=== PATIENT | female | born 1995 | race African-American/Black ===

== ENCOUNTER 2018-10-02 15:48 | Outpatient (CLI) | payer MEDICAID ==
--- NOTE | 2018-10-02 17:24 | ULT ---
LEFT BREAST DIAGNOSTIC ULTRASOUND: INDICATIONS: Palpable abnormality in the left breast. COMPARISON: Bilateral breast ultrasound from the [facility], dated 03/11/2017. FINDINGS: There is a 1 x 0.7 cm, well circumscribed, solid mass seen within the left breast 6 o'clock position that was not definitely seen on the comparison study. The previously seen 1.5 cm left breast 6 o'jade ck lesion, 2 cm from the nipple, is likely stable to the comparison examination. There is a 0.9 x 0.6 cm, well circumscribed mass within the left breast 7 o'clock position, within th e retroareolar region, that was not definitely identified on the prior examination. The lesion in the left breast 3 o'clock position, 6 cm from the nipple, measuring 8 x 4 mm, is stable . IMPRESSION: Multiple fibroadenomas of the left breast. The lesions within the left breast 3 o'clock position and the left breast 6 o'clock position are stable. There is a new lesion in the left breast 6 o'clock p osition that was not definitely identified on the prior examination, measuring 1 x 0.7 cm. There is an additional lesion within the left breast 7 o'clock position that was not definitely seen on the co mparison examination. POS: OFF
--- NOTE | 2018-10-02 17:34 | ULT ---
RIGHT BREAST DIAGNOSTIC ULTRASOUND: INDICATIONS: History of fibroadenomas in the right breast with a palpable abnormality in the right breast retroare olar region. COMPARISON: Prior right breast ultrasound from the [facility] dated 03/11/2017 and a prior [facility] breast ultrasound dated 12/28/2012. FINDINGS: Within the palpable region of interest, in the right breast 4 o'clock retroareolar region, is a 2.8 x 2.1 x 3.2 cm mass. This has mildly enlarged from the comparison, dated 03/11/2017. This may also r eflect the lesion that was previously marked in the right breast 7 o'clock position on the 12/28/2012 exam, as the lesion appears morphologically similar and overlies the pectoralis muscle on the provid ed images. The patient does report that this lesion is symptomatic to her, and the patient thought t his may have intervally grown. IMPRESSION: Symptomatic 2.8 x 3.2 cm solid mass within the right breast retroareolar region, in the 4 o'clock pos ition, that likely corresponds to the lesion identified on 03/11/2017 and on 12/28/2012. Since this lesion is symptomatic to the patient and somewhat enlarged, would recommend breast surgical referral for removal, as these lesions do require some excision of surrounding breast tissue to prevent them f rom reocurring. Any further growth may induce a cosmetically displeasing outcome. The patient was c ounseled of the findings [facility]. POS: OFF
== END 2018-10-02 15:49 | disposition home or self-care (01) ==
LOC: BICULT 15:48
PROVIDERS: ATTEND Physician Assistant
DX: N60.01 Solitary cyst of right breast (principal); N63.14 Unspecified lump in the right breast, lower inner quadrant; D24.2 Benign neoplasm of left breast; N64.89 Other specified disorders of breast

== ENCOUNTER 2020-09-11 09:02 | Outpatient (CLI) | payer OTHER | END 2020-09-11 09:03 | disposition home or self-care (01) | LOC: BICULT 09:02 | PROVIDERS: ATTEND Physician Assistant | DX: N63.10 Unspecified lump in the right breast, unspecified quadrant (principal) ==

== ENCOUNTER 2021-12-03 06:58 | Day surgery (SDC) | payer OTHER ==
[2021-12-02 14:15] VITALS: BMI 22.2
[2021-12-03] MEDS ORDERED: Acetaminophen 500 MG TAB ONE (07:43)
[2021-12-03] MEDS ORDERED: Ketorolac Tromethamine 30 MG/ML VIAL ONE (07:44)
[2021-12-03] MEDS ORDERED: Midazolam HCl 2 mg/2 ml Vial ONE (08:20)
[2021-12-03] MEDS ORDERED: Bupivacaine 0.25% HCL 30 ML VIAL ONE ×2 (09:42→10:13)
[2021-12-03] MEDS ORDERED: EPINEPHrine 1 MG/ML AMP ONE (09:42)
[2021-12-03] MEDS ORDERED: Sodium Chloride 0.9% 100 ML ONE (09:49)
[2021-12-03] MEDS ORDERED: CEFAZOLIN 2 GM VIAL ONE (09:49)
[2021-12-03] MEDS ORDERED: Famotidine/PF 20 mg/2ml Vial ONE (09:54)
[2021-12-03] MEDS ORDERED: fentaNYL Citrate/PF 100 MCG/2 ML SYRINGE ONE (09:54)
[2021-12-03] MEDS ORDERED: Lidocaine 1% MPF 2 ML VIAL ONE (10:04)
[2021-12-03] MEDS ORDERED: Glycopyrrolate 0.2 MG/ML 5 ML SYRINGE ONE (10:04)
[2021-12-03] MEDS ORDERED: Dexamethasone 20 MG/5 ML VIAL ONE (10:04)
[2021-12-03] MEDS ORDERED: NEOSTIGMINE 3 MG/3 ML SYR 3 MG/3 ML SYRINGE ONE (10:04)
[2021-12-03] MEDS ORDERED: Ondansetron PF 4 MG/2 ML Vial ONE (10:04)
[2021-12-03] MEDS ORDERED: PROPOFOL 200 MG/20 ML VIAL ONE (10:04)
[2021-12-03] MEDS ORDERED: Rocuronium Bromide 10 MG/ML (10ML VIAL) ONE (10:04)
== END 2021-12-03 13:50 | disposition home or self-care (01) ==
LOC: SDC 06:58
PROVIDERS: ATTEND Specialist
PROC: 0WUF0JZ Supplement Abdominal Wall with Synthetic Substitute, Open Approach (ICD-10-PCS; principal; 2021-12-03)
PROC: 0HBT0ZZ Excision of Right Breast, Open Approach (ICD-10-PCS; principal; 2021-12-03)
DX: D24.1 Benign neoplasm of right breast (principal); K42.9 Umbilical hernia without obstruction or gangrene
CPT/HCPCS: 88305; C1713; C1889; J0171; J0690; J1100; J1885; J2250; J2405; J2704; J3490; S0020; S0028